=== PATIENT | female | born 1990 | race African-American/Black ===

== ENCOUNTER 2016-12-04 04:10 | Emergency (ER) | payer MEDICAID ==
[~2016-12-04] VITALS: Ht 167.6 cm; Wt 59.0 kg
[2016-12-04] MEDS ORDERED: ONDANSETRON HCL 4MG/2ML VIAL IV ONE (06:30)
[2016-12-04] MEDS ORDERED: SODIUM CHLORIDE 0.9% 1,000 ML IV ONE (06:45)
[2016-12-04] MEDS ORDERED: MORPHINE SULFATE 4 MG/ML CPJ (NOT FOR IM USE) IV ONE (07:00)
[2016-12-04] MEDS: FAMOTIDINE 20MG/2ML VIAL IV SCH ×3 (07:07→08:54)
[2016-12-04 07:13] LABS: HEMATOCRIT. 38.2 % (36.0-48.0); MEAN CORPUSCULAR HEMOGLOBIN 28.9 pg (28.0-32.0); MEAN CORPUSCULAR VOLUME 84.6 fL (81.0-99.0); PLATELET 146 x1000/uL (130-400); RED BLOOD CELL COUNT 4.52 mill/uL (4.2-5.4); RED CELL DISTRIBUTION WIDTH 13.3 % (11.6-14.6)
[2016-12-04 07:15] LABS: CLARITY URINE CLEAR (CLEAR); COLOR URINE YELLOW (YELLOW); GLUCOSE URINE NEGATIVE (NEGATIVE); KETONES URINE 1+ (NEGATIVE); LEUKOCYTE ESTERASE URINE 2+ (NEGATIVE); NITRITE URINE NEGATIVE (NEGATIVE); OCCULT BLOOD URINE NEGATIVE (NEGATIVE); PH URINE 6.5 (4.5-8.0); PROTEIN URINE TRACE (NEGATIVE); SPECIFIC GRAVITY URINE 1.032 (1.005-1.030)
[2016-12-04 07:18] LABS: CHLORIDE 107 mEq/L (98-107)
[2016-12-04 07:23] LABS: CARBON DIOXIDE 25 mEq/L (21-32)
[2016-12-04 07:52] LABS: PLATELET ESTIMATE NORMAL
[2016-12-04] MEDS ORDERED: METOCLOPRAMIDE HCL 10MG/2ML VIAL IV ONE (08:30)
[2016-12-04] MEDS ORDERED: VISCOUS LIDOCAINE 2% 15 ML UDC MM PRN (08:30)
[2016-12-04] MEDS ORDERED: MAGNESIUM/ALUMINUM HYDROXIDE/SIMETHICONE 30ML UDC PO ONE (08:30)
[2016-12-04] MEDS ORDERED: MORPHINE SULFATE 2 MG/ML CPJ (NOT FOR IM USE) IV ONE (08:30)
[2016-12-04 09:43] VITALS: BP 99/58
== END 2016-12-04 10:25 | disposition home or self-care (01) ==
LOC: ER 04:16
DX: R19.7 Diarrhea, unspecified (principal); K52.9 Noninfective gastroenteritis and colitis, unspecified; N39.0 Urinary tract infection, site not specified; J45.909 Unspecified asthma, uncomplicated; E11.9 Type 2 diabetes mellitus without complications
CPT/HCPCS: 36415; 76705; 80053; 81001; 81025; 85007; 85027; 87086; 96361; 96374; 96375; 96376; 99285; J2270; J2405; J2765; J3490; J7030; Z7610

== ENCOUNTER 2017-04-02 10:34 | Emergency (ER) | payer MEDICAID ==
[~2017-04-02] VITALS: Ht 157.5 cm; Wt 59.0 kg
[2017-04-02] MEDS ORDERED: METF500T4 PO (10:40)
[2017-04-02] MEDS ORDERED: ONDANSETRON HCL 4MG/2ML VIAL IV STA (10:57)
[2017-04-02] MEDS ORDERED: SODIUM CHLORIDE 0.9% 1,000 ML IV ONE ×2 (10:57→12:45)
[2017-04-02 11:25] LABS: BASOPHILS % 1.2 % (0.0-2.0); EOSINOPHILS % 4.6 % (0.0-5.0); HEMATOCRIT. 42.6 % (36.0-48.0); HEMOGLOBIN. 14.5 g/dL (12.0-16.0); LYMPHOCYTES % 30.7 % (20.0-50.0); MEAN CORPUSCULAR HEMOGLOBIN 28.4 pg (28.0-32.0); MEAN CORPUSCULAR VOLUME 82.9 fL (81.0-99.0); MEAN PLATELET VOLUME 10.6 fl (7.4-10.4); MONOCYTES % 5.4 % (2.0-8.0); NEUTROPHILS % 58.1 % (40.0-76.0); PLATELET 188 x1000/uL (130-400); RED BLOOD CELL COUNT 5.13 mill/uL (4.2-5.4); RED CELL DISTRIBUTION WIDTH 13.5 % (11.6-14.6)
[2017-04-02 11:33] LABS: PROTHROMBIN TIME 10.7 sec (9.4-11.6)
[2017-04-02 11:35] LABS: CHLORIDE 99 mEq/L (98-107)
[2017-04-02 11:37] LABS: HCG SCREEN NEGATIVE
[2017-04-02 11:39] LABS: CARBON DIOXIDE 24 mEq/L (21-32)
[2017-04-02 11:40] LABS: BETA HYDROXYBUTYRATE 0.9 mMol/L (0.0-0.3)
[2017-04-02 12:12] LABS: CLARITY URINE CLOUDY (CLEAR); COLOR URINE YELLOW (YELLOW); GLUCOSE URINE 3+ (NEGATIVE); KETONES URINE 3+ (NEGATIVE); LEUKOCYTE ESTERASE URINE 1+ (NEGATIVE); NITRITE URINE POSITIVE (NEGATIVE); OCCULT BLOOD URINE NEGATIVE (NEGATIVE); PH URINE 5.5 (4.5-8.0); PROTEIN URINE NEGATIVE (NEGATIVE); SPECIFIC GRAVITY URINE 1.042 (1.005-1.030); UROBILINOGEN URINE 0.2 E.U./dL (0.2-1.0)
[2017-04-02] MEDS ORDERED: CEFTRIAXONE 1 G PREMIX 50 ML IV ONE (12:45)
[2017-04-02 13:56] VITALS: BP 110/59
== END 2017-04-02 13:59 | disposition home or self-care (01) ==
LOC: ER 10:34
DX: E11.65 Type 2 diabetes mellitus with hyperglycemia (principal); N30.00 Acute cystitis without hematuria; Z79.84 Long term (current) use of oral hypoglycemic drugs; J45.909 Unspecified asthma, uncomplicated
CPT/HCPCS: 36415; 80053; 81001; 82010; 82962; 83690; 84703; 85025; 85610; 93005; 96361; 96365; 96375; 99285; J0696; J2405; Z7610; J7030

== ENCOUNTER 2019-04-21 08:20 | Inpatient (IN) | payer MEDICAID ==
[2019-04-21] VITALS (18 sets, daily range): BP systolic 88–113; BP diastolic 49–77
[~2019-04-21] VITALS: Ht 160 cm; Wt 49.9 kg
[~2019-04-21 08:20] MED LIST: METF-414 PO
[2019-04-21] MEDS ORDERED: MORPHINE SULFATE 4 MG/ML CPJ (NOT FOR IM USE) IV STA (08:38)
[2019-04-21] MEDS ORDERED: SODIUM CHLORIDE 0.9% 1,000 ML IV ONE (08:38)
[2019-04-21 09:14] LABS: BASOPHILS % 0.7 % (0.0-2.0); EOSINOPHILS % 1.5 % (0.0-5.0); HEMATOCRIT. 51.5 % (36.0-48.0); HEMOGLOBIN. 16.7 g/dL (12.0-16.0); MEAN CORPUSCULAR HEMOGLOBIN 29.2 pg (28.0-32.0); MEAN CORPUSCULAR VOLUME 90.1 fL (81.0-99.0); MEAN PLATELET VOLUME 11.2 fl (7.4-10.4); MONOCYTES % 4.4 % (2.0-8.0); NEUTROPHILS % 77.4 % (40.0-76.0); PLATELET 258 x1000/uL (130-400); RED BLOOD CELL COUNT 5.72 mill/uL (4.2-5.4); RED CELL DISTRIBUTION WIDTH 15.3 % (11.6-14.6)
[2019-04-21 09:20] LABS: CHLORIDE 98 mEq/L (98-107)
[2019-04-21 09:25] LABS: CLARITY URINE CLEAR (CLEAR); COLOR URINE YELLOW (YELLOW); KETONES URINE 4+ (NEGATIVE); LEUKOCYTE ESTERASE URINE TRACE (NEGATIVE); NITRITE URINE NEGATIVE (NEGATIVE); OCCULT BLOOD URINE 1+ (NEGATIVE); PROTEIN URINE 2+ (NEGATIVE); UROBILINOGEN URINE 0.2 E.U./dL (0.2-1.0)
[2019-04-21 09:27] LABS: BETA HYDROXYBUTYRATE 8.6 mMol/L (0.0-0.3)
[2019-04-21 09:33] LABS: BG BASE EXCESS -19.5 mmol/L (-2.0-2.0); BG CARBOXYHEMOGLOBIN 0.8 % (0.5-1.5); BG DEOXYHEMOGLOBIN 2.2 % (0.0-5.0); BG FRACTION INSPIRED OXYGEN 21; BG HCO3 ACT 7.2 mmol/L (22.0-26.0); BG METHEMOGLOBIN 0.4 % (0.0-1.5); BG OXYGEN SATURATION 97.8 % (92.0-98.5); BG OXYHEMOGLOBIN 96.6 % (94.0-97.0); BG PCO2 20.9 mmHg (35.0-45.0); BG PH 7.154 (7.350-7.450); BG SAMPLE SITE RIGHT BRACHIAL; BG TOTAL HEMOGLOBIN 15.9 g/dL (12.0-18.0); BG VENT MODE ROOM AIR
[2019-04-21] MEDS ORDERED: INSULIN REGULAR (DRIP) 100 UNITS in SODIUM CHLORIDE 0.9% 99 ML IV SCH (09:45)
[2019-04-21] MEDS ORDERED: SODIUM CHLORIDE 0.9% 1,000 ML IV SCH (09:56)
[2019-04-21] MEDS ORDERED: IPRATROPIUM/ALBUTEROL 0.5-3(2.5)MG/3ML NEB HHN PRN (10:00)
[2019-04-21] MEDS ORDERED: ENOXAPARIN 40MG/0.4ML SYR SUBCUT SCH ×2 (10:00→10:45)
[2019-04-21] MEDS ORDERED: MORPHINE SULFATE 4 MG/ML CPJ (NOT FOR IM USE) IV ONE (10:00)
[2019-04-21] MEDS ORDERED: MAGNESIUM/ALUMINUM HYDROXIDE/SIMETHICONE 30ML UDC PO PRN (10:00)
[2019-04-21] MEDS ORDERED: CLONIDINE 0.1MG TABLET PO PRN (10:00)
[2019-04-21] MEDS ORDERED: DIPHENHYDRAMINE 50MG/ML VIAL IV PRN (10:00)
[2019-04-21] MEDS ORDERED: CEFTRIAXONE 1 G PREMIX 50 ML IV SCH (10:00)
[2019-04-21] MEDS ORDERED: ACETAMINOPHEN 325MG TABLET PO PRN (10:00)
[2019-04-21 11:57] LABS: CHLORIDE 108 mEq/L (98-107)
[2019-04-21 12:02] LABS: PHOSPHORUS 2.7 mg/dL (2.5-4.9)
[2019-04-21] MEDS ORDERED: INSULIN REGULAR (DRIP) 100 UNITS in SODIUM CHLORIDE 0.9% 100 ML IV ONE (12:45)
[2019-04-21] MEDS ORDERED: POTASSIUM CHLORIDE INJ 20 MEQ in DEXT 5%/0.9% NACL 1,000 ML IV SCH (15:00)
[2019-04-21] MEDS ORDERED: INSULIN REGULAR (DRIP) 100 UNITS in SODIUM CHLORIDE 0.9% 99 ML IV PRN (15:00)
[2019-04-21 15:28] LABS: CHLORIDE 111 mEq/L (98-107)
[2019-04-21] MEDS ORDERED: EPINEPHRINE 1 MG in SODIUM CHLORIDE 0.9% 249 ML IV PRN (18:00)
[2019-04-21] MEDS: DEXT IV SCH (20:05)
[2019-04-21] MEDS: KCL IV SCH (20:05)
[2019-04-21] MEDS: NACL IV SCH (20:05)
[2019-04-21 20:06] LABS: CHLORIDE 117 mEq/L (98-107)
[2019-04-21] MEDS ORDERED: DEXTROSE 50% WATER 50ML SYRINGE IV PRN ×2 (20:30)
[2019-04-21] MEDS: BLOOD SUGAR DIAGNOSTIC STRIP TEST SCH ×3 (21:24→23:12)
[2019-04-21] MEDS: ONDANSETRON HCL 4MG/2ML INJ IV PRN (21:24)
[2019-04-21] MEDS ORDERED: INSULIN REGULAR (DRIP) 100 UNITS in SODIUM CHLORIDE 0.9% 100 ML IV SCH (22:00)
[2019-04-22] VITALS (21 sets, daily range): BP systolic 80–103; BP diastolic 41–65
[2019-04-22] MEDS: BLOOD SUGAR DIAGNOSTIC STRIP TEST SCH ×9 (00:29→11:41)
[2019-04-22] MEDS: NACL IV SCH ×3 (00:36→09:26)
[2019-04-22] MEDS: KCL IV SCH ×3 (00:36→09:26)
[2019-04-22] MEDS: DEXT IV SCH ×3 (00:36→09:26)
[2019-04-22] MEDS: ONDANSETRON HCL 4MG/2ML INJ IV PRN (05:09)
[2019-04-22] MEDS ORDERED: FLUCONAZOLE 100MG TABLET PO SCH (09:00)
[2019-04-22] MEDS ORDERED: ENOXAPARIN 40MG/0.4ML SYR SUBCUT SCH (09:00)
[2019-04-22 09:11] LABS: CHLORIDE 116 mEq/L (98-107)
[2019-04-22] MEDS ORDERED: CEFTRIAXONE 1 G PREMIX 50 ML IV SCH (10:00)
== END 2019-04-22 14:06 | disposition left against medical advice (07) | DRG 420 ==
LOC: ER 08:20 → MICUNO 09:49 → EDBEDREQ 09:53 → EDBEDREQTM 09:53 → ENRESERV 12:17
PROVIDERS: ADMIT Internal Medicine; ATTEND Internal Medicine
DX: E11.10 Type 2 diabetes mellitus with ketoacidosis without coma (principal); E87.1 Hypo-osmolality and hyponatremia; E86.0 Dehydration; J45.909 Unspecified asthma, uncomplicated; K08.89 Other specified disorders of teeth and supporting structures; N39.0 Urinary tract infection, site not specified; Z79.84 Long term (current) use of oral hypoglycemic drugs
CPT/HCPCS: 36415; 36600; 71045; 80048; 80061; 81003; 82010; 82375; 82805; 82962; 83735; 84100; 84443; 93970; 96361; 96365; 96367; 96372; 96375; 96376; 99291; J0696; J1200; J1650; J1815; J2270; J2405; J3480; J7030; J7042; J7050

== ENCOUNTER 2021-03-03 23:25 | Emergency (ER) | payer MEDICAID ==
[~2021-03-03] VITALS: Ht 170.2 cm; Wt 61.0 kg
[2021-03-03] MEDS ORDERED: SODIUM CHLORIDE 0.9% 1,000 ML IV ONE (23:45)
[2021-03-04 00:18] LABS: BASOPHILS % 1.1 % (0.0-2.0); EOSINOPHILS % 2.7 % (0.0-5.0); HEMATOCRIT. 31.6 % (36.0-48.0); HEMOGLOBIN. 10.1 g/dL (12.0-16.0); LYMPHOCYTES % 33.3 % (20.0-50.0); MEAN CORPUSCULAR HEMOGLOBIN 23.7 pg (28.0-32.0); MEAN CORPUSCULAR VOLUME 74.3 fL (81.0-99.0); MEAN PLATELET VOLUME 9.8 fl (7.4-10.4); MONOCYTES % 7.7 % (2.0-8.0); NEUTROPHILS % 55.2 % (40.0-76.0); PLATELET 223 x1000/uL (130-400); RED BLOOD CELL COUNT 4.26 mill/uL (4.2-5.4); RED CELL DISTRIBUTION WIDTH 18.3 % (11.6-14.6)
[2021-03-04] MEDS ORDERED: KETOROLAC 30MG/ML VIAL IV ONE (00:30)
[2021-03-04 00:33] LABS: CHLORIDE 101 mEq/L (98-107)
[2021-03-04 00:38] LABS: ETHANOL BLOOD < 10 mg/dL
[2021-03-04 00:40] LABS: BETA HYDROXYBUTYRATE 0.2 mMol/L (0.0-0.3)
[2021-03-04 00:44] LABS: CLARITY URINE CLEAR (CLEAR); COLOR URINE YELLOW (YELLOW); KETONES URINE NEGATIVE (NEGATIVE); LEUKOCYTE ESTERASE URINE NEGATIVE (NEGATIVE); NITRITE URINE NEGATIVE (NEGATIVE); OCCULT BLOOD URINE NEGATIVE (NEGATIVE); PH URINE 6.5 (4.5-8.0); PROTEIN URINE NEGATIVE (NEGATIVE); SPECIFIC GRAVITY URINE 1.036 (1.005-1.030)
[2021-03-04] MEDS ORDERED: SODIUM CHLORIDE 0.9% 1000ML BAG (SEPSIS BOLUS) IV NR (01:00)
[2021-03-04] MEDS ORDERED: INSULIN LISPRO 100 UNITS/ML SUBCUT NR (01:00)
[2021-03-04 01:15] LABS: *AMPHETAMINES SCREEN URINE NEGATIVE (NEGATIVE); *BARBITURATES SCREEN URINE NEGATIVE (NEGATIVE); *COCAINE SCREEN URINE NEGATIVE (NEGATIVE); METHADONE URINE SCREEN NEGATIVE (NEGATIVE); OPIATES URINE SCREEN NEGATIVE (NEGATIVE)
[2021-03-04 01:16] LABS: PHENCYCLIDINE URINE SCREEN NEGATIVE (NEGATIVE)
[2021-03-04 01:17] LABS: *BENZODIAZEPINES SCREEN URINE NEGATIVE (NEGATIVE)
[2021-03-04 01:25] LABS: CANNABINOID URINE SCREEN PRESUMTIVE POSITIVE (NEGATIVE)
[2021-03-04 02:00] VITALS: BP 121/78
== END 2021-03-04 03:00 | disposition home or self-care (01) ==
LOC: ER 23:25
DX: F12.10 Cannabis abuse, uncomplicated (principal); E11.65 Type 2 diabetes mellitus with hyperglycemia; J45.909 Unspecified asthma, uncomplicated
CPT/HCPCS: 36415; 71045; 80053; 80305; 80320; 81003; 81025; 82010; 82962; 83036; 83605; 83690; 85025; 93005; 96361; 96372; 96374; 99291; J1815; J1885; J7030; G0480

== ENCOUNTER 2022-10-04 08:34 | Emergency (ER) | payer MEDICAID ==
[~2022-10-04] VITALS: Ht 162.6 cm; Wt 65.0 kg
[2022-10-04] MEDS ORDERED: ACETAMINOPHEN 325MG TABLET PO ONE (08:45)
[2022-10-04] MEDS ORDERED: ONDANSETRON HCL 4MG/2ML INJ IV ONE ×2 (08:45→11:00)
[2022-10-04] MEDS ORDERED: SODIUM CHLORIDE 0.9% 1,000 ML IV ONE (08:45)
[2022-10-04 08:58] LABS: BASOPHILS % 0.5 % (0.0-2.0); EOSINOPHILS % 1.5 % (0.0-5.0); HEMATOCRIT. 36.5 % (36.0-48.0); HEMOGLOBIN. 12.3 g/dL (12.0-16.0); LYMPHOCYTES % 17.4 % (20.0-50.0); MEAN CORPUSCULAR HEMOGLOBIN 27.4 pg (28.0-32.0); MEAN CORPUSCULAR VOLUME 81.3 fL (81.0-99.0); MEAN PLATELET VOLUME 9.7 fl (7.4-10.4); MONOCYTES % 7.1 % (2.0-8.0); NEUTROPHILS % 73.5 % (40.0-76.0); PLATELET 273 x1000/uL (130-400); RED BLOOD CELL COUNT 4.49 mill/uL (4.2-5.4); RED CELL DISTRIBUTION WIDTH 15.7 % (11.6-14.6)
[2022-10-04 09:05] LABS: CHLORIDE 104 mEq/L (98-107)
[2022-10-04 09:13] LABS: BETA HYDROXYBUTYRATE 0.2 mMol/L (0.0-0.3)
[2022-10-04 09:37] LABS: HCG SCREEN NEGATIVE
[2022-10-04] MEDS ORDERED: KETOROLAC 30MG/ML VIAL IV ONE (11:00)
[2022-10-04] MEDS ORDERED: METOCLOPRAMIDE HCL 10MG/2ML VIAL IV ONE (12:45)
[2022-10-04 14:50] VITALS: BP 105/85
== END 2022-10-04 15:20 | disposition short-term general hospital (02) ==
LOC: ER 08:34 → CANBEDREQ 12:19 → ER 15:20
DX: R11.2 Nausea with vomiting, unspecified (principal); E11.9 Type 2 diabetes mellitus without complications; J45.909 Unspecified asthma, uncomplicated; Z20.822 Contact with and (suspected) exposure to COVID-19; Z88.6 Allergy status to analgesic agent
CPT/HCPCS: 36415; 71045; 80053; 82010; 82962; 84703; 85025; 87426; 96361; 96374; 96375; 96376; 99285; C9803; J1885; J2405; J2765; J7030; Z7610

== ENCOUNTER 2023-02-22 12:03 | Emergency (ER) | payer MEDICARE ==
[~2023-02-22] VITALS: Ht 167.6 cm; Wt 59.0 kg
[2023-02-22 12:06] VITALS: O2SAT 98
[2023-02-22] MEDS ORDERED: ONDANSETRON 4MG ODT PO STA (12:12)
[2023-02-22] MEDS ORDERED: ACETAMINOPHEN 325MG TABLET PO STA (12:20)
[2023-02-22 12:57] LABS: BASOPHILS % 0.4 % (0.0-2.0); DIFFERENTIAL COMMENT 0; EOSINOPHILS % 0.2 % (0.0-5.0); HEMATOCRIT. 34.1 % (36.0-48.0); LYMPHOCYTES % 12.1 % (20.0-50.0); MEAN CORPUSCULAR HEMOGLOBIN 25.5 pg (28.0-32.0); MEAN CORPUSCULAR HGB CONC 32.1 g/dL (31.0-37.0); MEAN CORPUSCULAR VOLUME 79.3 fL (81.0-99.0); MEAN PLATELET VOLUME 9.1 fl (7.4-10.4); MONOCYTES % 5.6 % (2.0-8.0); NEUTROPHILS % 81.7 % (40.0-76.0); PLATELET 354 x1000/uL (130-400); RED CELL DISTRIBUTION WIDTH 18.7 % (11.6-14.6); WHITE BLOOD COUNT 6.3 x1000/uL (4.5-11.0)
[2023-02-22 13:10] LABS: HCG SCREEN NEGATIVE
[2023-02-22 13:13] LABS: CHLORIDE 104 mEq/L (98-107); INDEX HEMOLYSI 1 (1-3); INDEX ICTERIC 1 (1-4); INDEX LIPEMIC 1 (1-3); POTASSIUM 3.4 mEq/L (3.5-5.1); SODIUM 134 mEq/L (136-145)
[2023-02-22 13:33] LABS: ALANINE AMINOTRANSFERASE 16 IU/L (13-61); ALBUMIN 3.6 g/dL (3.4-5.0); ASPARTATE AMINOTRANSFERASE 7 IU/L (15-37); BETA HYDROXYBUTYRATE 5.3 mMol/L (0.0-0.3); BILIRUBIN TOTAL 0.6 mg/dL (0.1-1.0); CALCIUM 8.6 mg/dL (8.5-10.1); CARBON DIOXIDE 21 mEq/L (21-32); CREATININE 0.6 mg/dL (0.6-1.3); GLUCOSE 312 mg/dL (70-105); PROTEIN TOTAL 7.2 g/dL (6.0-8.3); UREA NITROGEN BLOOD 10 mg/dL (7-21)
[2023-02-22] MEDS ORDERED: SODIUM CHLORIDE 0.9% 1,000 ML IV ONE (14:15)
[2023-02-22] MEDS ORDERED: METOCLOPRAMIDE HCL 10MG/2ML VIAL IV ONE (14:30)
[2023-02-22] MEDS ORDERED: ONDA8TAB13 MT ×2 (18:33)
[2023-02-22] MEDS ORDERED: METOCLOPRAMIDE HCL 10MG/2ML VIAL IV NR (18:50)
[2023-02-22] MEDS ORDERED: MAGNESIUM/ALUMINUM HYDROXIDE/SIMETHICONE 30ML UDC PO ONE (19:15)
[2023-02-22] MEDS ORDERED: OMEP40CA20 MT (19:32)
[2023-02-22] MEDS ORDERED: ONDA4TAB50 MT (19:42)
[2023-02-22] MEDS ORDERED: ACETAMINOPHEN 325MG TABLET PO NR (21:32)
[2023-02-22] MEDS ORDERED: MAGNESIUM/ALUMINUM HYDROXIDE/SIMETHICONE 30ML UDC PO NR (21:32)
[2023-02-22] MEDS ORDERED: ONDANSETRON 4MG ODT PO NR (21:32)
[2023-02-22 23:11] LABS: CLARITY URINE CLEAR (CLEAR); COLOR URINE YELLOW (YELLOW); GLUCOSE URINE 3+ (NEGATIVE); KETONES URINE 4+ (NEGATIVE); LEUKOCYTE ESTERASE URINE NEGATIVE (NEGATIVE); NITRITE URINE NEGATIVE (NEGATIVE); OCCULT BLOOD URINE NEGATIVE (NEGATIVE); PH URINE 5.5 (4.5-8.0); PROTEIN URINE NEGATIVE (NEGATIVE); SPECIFIC GRAVITY URINE 1.024 (1.005-1.030); UROBILINOGEN URINE 0.2 E.U./dL (0.2-1.0)
[2023-02-22 23:20] LABS: WBC URINE 0-2 /hpf (0-2)
[2023-02-22 23:21] LABS: BACTERIA URINE NONE SEEN; RBC URINE NONE SEEN /hpf (0-2); SQUAMOUS EPITHELIAL CELL URINE 1+ /lpf (RARE/1+)
[2023-02-22 23:26] LABS: *AMPHETAMINES SCREEN URINE NEGATIVE (NEGATIVE); *BARBITURATES SCREEN URINE NEGATIVE (NEGATIVE); *BENZODIAZEPINES SCREEN URINE NEGATIVE (NEGATIVE); *COCAINE SCREEN URINE NEGATIVE (NEGATIVE); ECSTASY MDMA SCREEN URINE NEGATIVE (NEGATIVE); METHADONE URINE SCREEN NEGATIVE (NEGATIVE); OPIATES URINE SCREEN NEGATIVE (NEGATIVE); PHENCYCLIDINE URINE SCREEN NEGATIVE (NEGATIVE)
[2023-02-22 23:57] LABS: CANNABINOID URINE SCREEN PRESUMTIVE POSITIVE (NEGATIVE)
[2023-02-23] MEDS ORDERED: DIPHENHYDRAMINE 25MG CAPSULE PO NR (01:00)
[2023-02-23 01:20] VITALS: BP 119/79; PULSE 89; RESP 19; TEMP 98.7
== END 2023-02-23 01:21 | disposition home or self-care (01) ==
LOC: ER 12:03
DX: K31.84 Gastroparesis (principal); E11.65 Type 2 diabetes mellitus with hyperglycemia; R11.2 Nausea with vomiting, unspecified; J45.909 Unspecified asthma, uncomplicated; Z88.8 Allergy status to other drugs, medicaments and biological substances
CPT/HCPCS: 80053; 80305; 81003; 82010; 82962; 84703; 83605; 83690; 85025; 36415; 74176; 96360; 99285; Q0162; J2765; J7030; Z7610; Q0163

== ENCOUNTER 2024-10-22 19:52 | Inpatient (IN) | payer BC, MEDICAID ==
[~2024-10-22] VITALS: Ht 157.5 cm; Wt 61.2 kg
[~2024-10-22 19:52] MED LIST changes: +OMEP40CA20 MT; +ONDA4TAB50 MT
[2024-10-22 19:54] VITALS: O2SAT 100
[2024-10-22 20:35] LABS: BG BASE EXCESS -6.5 mmol/L (-2.0-3.0); BG DEOXYHEMOGLOBIN 2.4 % (0.0-5.0); BG FRACTION INSPIRED OXYGEN 21; BG HCO3 ACT 17.1 mmol/L (21.0-28.0); BG METHEMOGLOBIN 0.3 % (0.5-1.5); BG OXYGEN SATURATION 97.5 % (94.0-98.0); BG OXYHEMOGLOBIN 94.3 % (94.0-98.0); BG PCO2 27.6 mmHg (32.0-45.0); BG PH 7.411 (7.350-7.450); BG PO2 91.8 mmHg (83.0-108.0); BG SAMPLE SITE RIGHT RADIAL; BG TOTAL HEMOGLOBIN 9.3 g/dL (12.0-16.0); BG VENT MODE ROOM AIR
[2024-10-22] MEDS: SODIUM CHLORIDE 0.9% 1,000 ML IV ONE ×3 (20:51→21:47)
[2024-10-22] MEDS: METOCLOPRAMIDE HCL 10MG/2ML VIAL IV STA (20:52)
[2024-10-22] MEDS: FAMOTIDINE 20MG/2ML VIAL IV STA (20:52)
[2024-10-22] MEDS: MORPHINE SULFATE 2 MG/ML INJ (NOT FOR IM USE) IV ONE (20:53)
[2024-10-22 20:59] LABS: BASOPHILS % 1.4 % (0.0-2.0); DIFFERENTIAL COMMENT 0; EOSINOPHILS % 1.8 % (0.0-5.0); HEMATOCRIT. 27.3 % (36.0-48.0); HEMOGLOBIN. 8.3 g/dL (12.0-16.0); LYMPHOCYTES % 23.6 % (20.0-50.0); MEAN CORPUSCULAR HEMOGLOBIN 21.5 pg (28.0-32.0); MEAN CORPUSCULAR HGB CONC 30.4 g/dL (31.0-37.0); MEAN CORPUSCULAR VOLUME 70.7 fL (81.0-99.0); MEAN PLATELET VOLUME 9.4 fl (7.4-10.4); MONOCYTES % 7.9 % (2.0-8.0); NEUTROPHILS % 65.3 % (40.0-76.0); PLATELET 294 x1000/uL (130-400); RED BLOOD CELL COUNT 3.86 mill/uL (4.2-5.4); RED CELL DISTRIBUTION WIDTH 20.9 % (11.6-14.6); WHITE BLOOD COUNT 6.1 x1000/uL (4.5-11.0)
[2024-10-22 21:09] LABS: PROTHROMBIN TIME 10.3 sec (9.6-11.0)
[2024-10-22 21:10] LABS: CARBON DIOXIDE 19 mEq/L (21-32); CHLORIDE 101 mEq/L (98-107); POTASSIUM 4.5 mEq/L (3.5-5.1); SODIUM 133 mEq/L (136-145)
[2024-10-22 21:11] LABS: CALCIUM 8.9 mg/dL (8.7-10.4)
[2024-10-22 21:16] LABS: ETHANOL BLOOD < 10 mg/dL (<10); HCG SCREEN NEGATIVE; UREA NITROGEN BLOOD 18 mg/dL (9-23)
[2024-10-22 21:18] LABS: ALANINE AMINOTRANSFERASE 15 IU/L (10-49); ALBUMIN 3.8 g/dL (3.2-4.8); ASPARTATE AMINOTRANSFERASE 9 IU/L (<34); BILIRUBIN DIRECT < 0.1 mg/dL (<=3.0); BILIRUBIN TOTAL 0.3 mg/dL (0.1-1.0); PROTEIN TOTAL 6.5 g/dL (6.0-8.3)
[2024-10-22 21:34] LABS: CLARITY URINE CLEAR (CLEAR); COLOR URINE YELLOW (YELLOW); GLUCOSE URINE 3+ (NEGATIVE); KETONES URINE 2+ (NEGATIVE); LEUKOCYTE ESTERASE URINE NEGATIVE (NEGATIVE); NITRITE URINE NEGATIVE (NEGATIVE); OCCULT BLOOD URINE NEGATIVE (NEGATIVE); PH URINE 5.5 (4.5-8.0); PROTEIN URINE NEGATIVE (NEGATIVE); SPECIFIC GRAVITY URINE 1.032 (1.005-1.030); UROBILINOGEN URINE 0.2 E.U./dL (0.2-1.0)
[2024-10-22] MEDS: INSULIN REGULAR (HUMULIN R) 1000UNITS/10ML VIAL SUBCUT NR (21:34)
[2024-10-22 21:39] LABS: BETA HYDROXYBUTYRATE 0.6 mMol/L (0.0-0.3); CREATININE 1.4 mg/dL (0.6-1.0); GLUCOSE 546 mg/dL (70-105); TROPONIN I HIGH SENSITIVITY < 4 ng/L (3.0-34)
[2024-10-22 21:44] LABS: BACTERIA URINE 1+; RBC URINE 0-2 /hpf (0-2); SQUAMOUS EPITHELIAL CELL URINE FEW /lpf (RARE/1+)
[2024-10-22 21:45] LABS: WBC URINE 0-2 /hpf (0-2)
[2024-10-22 22:06] LABS: LACTIC ACID 4.8 mmol/L (0.4-2.0)
[2024-10-22] MEDS: SODIUM CHLORIDE 0.9% (SEPSIS BOLUS) IV NR (22:15)
[2024-10-22] MEDS: CEFTRIAXONE 1GM/50ML 50 ML IV NR (22:37)
[2024-10-22] MEDS: AZITHROMYCIN 500MG/250ML 250 ML IV NR (23:07)
[2024-10-22 23:46] VITALS: BP 155/70; PULSE 80; RESP 18; TEMP 36.6
[2024-10-23] VITALS (7 sets, daily range): BP systolic 104–145; BP diastolic 62–97; PULSE 63–121; RESP 16–18; TEMP 36.1–36.7; O2SAT 96–100
[2024-10-23] MEDS ORDERED: DEXTROSE 50% WATER 50ML SYRINGE IV PRN (02:30)
[2024-10-23] MEDS: ONDANSETRON HCL 4MG/2ML INJ IV PRN ×2 (04:38→21:14)
[2024-10-23] MEDS: BLOOD SUGAR DIAGNOSTIC STRIP TEST SCH (06:04)
[2024-10-23] MEDS: INSULIN LISPRO 100 UNITS/ML SUBCUT SCH ×2 (07:38→17:52)
[2024-10-23] MEDS ORDERED: IPRATROPIUM/ALBUTEROL 0.5-3(2.5)MG/3ML NEB HHN PRN (10:15)
[2024-10-23] MEDS ORDERED: CLONIDINE 0.1MG TABLET PO PRN (10:15)
[2024-10-23] MEDS ORDERED: ACETAMINOPHEN 325MG TABLET PO PRN ×2 (10:15)
[2024-10-23] MEDS ORDERED: NALOXONE HCL 0.4MG/ML VIAL IV PRN (10:30)
[2024-10-23] MEDS: HYDROCODONE/ACETAMINOPHEN 5/325MG TABLET PO PRN (11:05)
[2024-10-23] MEDS: SODIUM CHLORIDE 0.9% 1,000 ML IV SCH (11:06)
[2024-10-23 12:28] LABS: *AMPHETAMINES SCREEN URINE NEGATIVE (NEGATIVE); *BARBITURATES SCREEN URINE NEGATIVE (NEGATIVE); *BENZODIAZEPINES SCREEN URINE NEGATIVE (NEGATIVE)
[2024-10-23 12:29] LABS: *COCAINE SCREEN URINE NEGATIVE (NEGATIVE); METHADONE URINE SCREEN NEGATIVE (NEGATIVE); OPIATES URINE SCREEN NEGATIVE (NEGATIVE)
[2024-10-23 12:30] LABS: CANNABINOID URINE SCREEN PRESUMPTIVE POSITIVE (NEGATIVE); ECSTASY MDMA SCREEN URINE NEGATIVE (NEGATIVE); PHENCYCLIDINE URINE SCREEN NEGATIVE (NEGATIVE)
[2024-10-23] MEDS: INSULIN LISPRO 100 UNITS/ML SUBCUT NR (14:32)
[2024-10-23] MEDS: DILTIAZEM HCL 30MG TABLET PO SCH (14:36)
[2024-10-23] MEDS: METOCLOPRAMIDE HCL 10MG/2ML VIAL IV SCH (14:37)
[2024-10-23] MEDS: DOCUSATE SODIUM 100MG CAPSULE PO PRN (17:59)
[2024-10-23] MEDS: INSULIN GLARGINE 100 UNITS/ML SUBCUT SCH (21:17)
[2024-10-23 22:30] LABS: BASOPHILS % 0.5 % (0.0-2.0); DIFFERENTIAL COMMENT 0; EOSINOPHILS % 1.1 % (0.0-5.0); HEMATOCRIT. 32.6 % (36.0-48.0); HEMOGLOBIN. 9.6 g/dL (12.0-16.0); LYMPHOCYTES % 14.6 % (20.0-50.0); MEAN CORPUSCULAR HEMOGLOBIN 21.1 pg (28.0-32.0); MEAN CORPUSCULAR HGB CONC 29.5 g/dL (31.0-37.0); MEAN CORPUSCULAR VOLUME 71.6 fL (81.0-99.0); MEAN PLATELET VOLUME 9.9 fl (7.4-10.4); MONOCYTES % 5.9 % (2.0-8.0); NEUTROPHILS % 77.9 % (40.0-76.0); PLATELET 403 x1000/uL (130-400); RED BLOOD CELL COUNT 4.55 mill/uL (4.2-5.4); RED CELL DISTRIBUTION WIDTH 21.6 % (11.6-14.6); WHITE BLOOD COUNT 11.7 x1000/uL (4.5-11.0)
[2024-10-23] MEDS: LACTULOSE 20G/30ML UDC PO NR (22:36)
[2024-10-23] MEDS: NA PHOS,M-B/NA PHOS,DI-BA ENEMA 118ML PR NR (22:36)
[2024-10-23] MEDS: MORPHINE SULFATE 2 MG/ML INJ (NOT FOR IM USE) IV PRN (22:36)
[2024-10-24] VITALS (43 sets, daily range): BP systolic 68–151; BP diastolic 33–109; PULSE 84–121; RESP 11–24; TEMP 36.4–36.9; O2SAT 98–100
[2024-10-24 06:48] LABS: HEMATOCRIT. 31.4 % (36.0-48.0); MEAN CORPUSCULAR HEMOGLOBIN 21.3 pg (28.0-32.0); MEAN CORPUSCULAR HGB CONC 28.8 g/dL (31.0-37.0); MEAN CORPUSCULAR VOLUME 74.1 fL (81.0-99.0); MEAN PLATELET VOLUME 9.3 fl (7.4-10.4); PLATELET 370 x1000/uL (130-400); PROTHROMBIN TIME 10.7 sec (9.6-11.0); RED BLOOD CELL COUNT 4.24 mill/uL (4.2-5.4); RED CELL DISTRIBUTION WIDTH 21.2 % (11.6-14.6); WHITE BLOOD COUNT 11.3 x1000/uL (4.5-11.0)
[2024-10-24 06:56] LABS: DIFFERENTIAL COMMENT 1
[2024-10-24 06:57] LABS: CHLORIDE 104 mEq/L (98-107); POTASSIUM 5.3 mEq/L (3.5-5.1); SODIUM 133 mEq/L (136-145)
[2024-10-24 06:58] LABS: CALCIUM 9.2 mg/dL (8.7-10.4)
[2024-10-24 07:03] LABS: CREATININE 1.2 mg/dL (0.6-1.0); IRON 26 ug/dL (50-170); UREA NITROGEN BLOOD 12 mg/dL (9-23)
[2024-10-24 07:04] LABS: ALANINE AMINOTRANSFERASE 18 IU/L (10-49)
[2024-10-24 07:05] LABS: ALBUMIN 4.5 g/dL (3.2-4.8); ASPARTATE AMINOTRANSFERASE 14 IU/L (<34); BILIRUBIN DIRECT 0.1 mg/dL (<=3.0); BILIRUBIN TOTAL 0.4 mg/dL (0.1-1.0); PHOSPHORUS 3.4 mg/dL (2.5-4.9); PROTEIN TOTAL 7.4 g/dL (6.0-8.3); TOTAL IRON BINDING CAPACITY 428 ug/dl (250-425)
[2024-10-24 07:32] LABS: FERRITIN 8 ng/mL (10-291); FOLIC ACID (FOLATE) SERUM > 20.00 ng/mL (>5.38)
[2024-10-24 07:33] LABS: VITAMIN B12 SERUM 525 pg/mL (211-911)
[2024-10-24 07:46] LABS: CARBON DIOXIDE < 10 mEq/L (21-32); GLUCOSE 579 mg/dL (70-105)
[2024-10-24] MEDS: BLOOD SUGAR DIAGNOSTIC STRIP TEST SCH (08:00)
[2024-10-24] MEDS ORDERED: BLOOD SUGAR DIAGNOSTIC STRIP TEST PRN (08:00)
[2024-10-24] MEDS: SODIUM ZIRCONIUM CYCLOSILICATE 10GM/PACKET PO NR (08:00)
[2024-10-24] MEDS: SODIUM CHLORIDE 0.9% 1,000 ML IV SCH (08:00)
[2024-10-24] MEDS: SODIUM BICARBONATE 100 MEQ in SODIUM CHLORIDE 0.45% 900 ML IV SCH (08:00)
[2024-10-24] MEDS ORDERED: DEXTROSE 50% WATER 50ML SYRINGE IV PRN (08:00)
[2024-10-24] MEDS: INSULIN REGULAR (HUMULIN R) 1000UNITS/10ML VIAL IV NR (08:00)
[2024-10-24] MEDS: PANTOPRAZOLE SODIUM 40 MG/VIAL IV SCH (09:20)
[2024-10-24] MEDS: SODIUM PHOSPHATE 15 MMOL in SODIUM CHLORIDE 0.9% 245 ML IV PRN (09:24)
[2024-10-24] MEDS: METOPROLOL TARTRATE 5MG/5ML VIAL IV NR (09:41)
[2024-10-24] MEDS: METOPROLOL TARTRATE 50MG TABLET PO SCH (10:00)
[2024-10-24 10:17] LABS: BETA HYDROXYBUTYRATE 7.5 mMol/L (0.0-0.3)
[2024-10-24 10:40] LABS: TROPONIN I HIGH SENSITIVITY < 4 ng/L (3.0-34)
[2024-10-24 10:45] LABS: BG BASE EXCESS -11.5 mmol/L (-2.0-3.0); BG CARBOXYHEMOGLOBIN 1.7 % (0.5-1.5); BG DEOXYHEMOGLOBIN 1.7 % (0.0-5.0); BG FRACTION INSPIRED OXYGEN 21; BG HCO3 ACT 13.4 mmol/L (21.0-28.0); BG METHEMOGLOBIN 0.3 % (0.5-1.5); BG OXYGEN SATURATION 98.3 % (94.0-98.0); BG OXYHEMOGLOBIN 96.3 % (94.0-98.0); BG PCO2 26.8 mmHg (32.0-45.0); BG PH 7.316 (7.350-7.450); BG PO2 107.2 mmHg (83.0-108.0); BG SAMPLE SITE RIGHT RADIAL; BG TOTAL HEMOGLOBIN 9.1 g/dL (12.0-16.0); BG VENT MODE ROOM AIR
[2024-10-24] MEDS: MORPHINE SULFATE 2 MG/ML INJ (NOT FOR IM USE) IV NR (10:51)
[2024-10-24 10:58] LABS: CHLORIDE 107 mEq/L (98-107); POTASSIUM 3.9 mEq/L (3.5-5.1); SODIUM 135 mEq/L (136-145)
[2024-10-24 10:59] LABS: CARBON DIOXIDE 15 mEq/L (21-32); CHLORIDE 106 mEq/L (98-107); POTASSIUM 3.9 mEq/L (3.5-5.1); SODIUM 136 mEq/L (136-145)
[2024-10-24 11:00] LABS: CALCIUM 8.7 mg/dL (8.7-10.4); CARBON DIOXIDE 15 mEq/L (21-32)
[2024-10-24 11:05] LABS: GLUCOSE 147 mg/dL (70-105); UREA NITROGEN BLOOD 12 mg/dL (9-23)
[2024-10-24 11:06] LABS: PHOSPHORUS 2.9 mg/dL (2.5-4.9)
[2024-10-24 11:07] LABS: BETA HYDROXYBUTYRATE 3.7 mMol/L (0.0-0.3)
[2024-10-24 11:37] LABS: CLARITY URINE CLEAR (CLEAR); COLOR URINE YELLOW (YELLOW); GLUCOSE URINE 3+ (NEGATIVE); KETONES URINE 4+ (NEGATIVE); LEUKOCYTE ESTERASE URINE NEGATIVE (NEGATIVE); NITRITE URINE NEGATIVE (NEGATIVE); OCCULT BLOOD URINE NEGATIVE (NEGATIVE); PROTEIN URINE TRACE (NEGATIVE); SPECIFIC GRAVITY URINE 1.023 (1.005-1.030); UROBILINOGEN URINE 0.2 E.U./dL (0.2-1.0)
[2024-10-24] MEDS ORDERED: INSULIN REGULAR 100U/100ML PMX 100 ML IV SCH (12:00)
[2024-10-24] MEDS: DEXT 5%/0.9% NACL 1,000 ML IV SCH (12:00)
[2024-10-24 12:22] LABS: RBC URINE NONE SEEN /hpf (0-2); SQUAMOUS EPITHELIAL CELL URINE 2+ /lpf (RARE/1+); WBC URINE 0-2 /hpf (0-2)
[2024-10-24 12:23] LABS: BACTERIA URINE NONE SEEN; FINE GRANULAR CASTS URINE 0-5 /lpf; HYALINE CASTS URINE 0-5 /lpf; MUCUS URINE 1+ /lpf (< = 2+)
[2024-10-24 12:46] LABS: PLATELET ESTIMATE NORMAL
[2024-10-24 12:47] LABS: ANISOCYTOSIS 2+; HYPOCHROMASIA 2+; MICROCYTOSIS 2+
[2024-10-24] MEDS: INSULIN REGULAR 100U/100ML PMX 100 ML IV SCH (13:15)
[2024-10-24] MEDS: LORAZEPAM 2MG/ML UD SYRINGE IV NR (14:43)
[2024-10-24] MEDS: PHENYLEPHRINE 50MG/250ML PMX 250 ML IV PRN (15:46)
[2024-10-24] MEDS: SUCRALFATE 1G TABLET PO SCH (17:02)
[2024-10-24] MEDS ORDERED: LORAZEPAM 2MG/ML UD SYRINGE IV PRN (17:15)
[2024-10-24 18:52] LABS: CHLORIDE 112 mEq/L (98-107); POTASSIUM 3.7 mEq/L (3.5-5.1); SODIUM 138 mEq/L (136-145)
[2024-10-24 18:53] LABS: CALCIUM 7.8 mg/dL (8.7-10.4); CARBON DIOXIDE 17 mEq/L (21-32)
[2024-10-24 18:58] LABS: CREATININE 0.9 mg/dL (0.6-1.0); GLUCOSE 200 mg/dL (70-105); UREA NITROGEN BLOOD 8 mg/dL (9-23)
[2024-10-24 19:00] LABS: PHOSPHORUS 2.1 mg/dL (2.5-4.9)
[2024-10-24 19:01] LABS: BETA HYDROXYBUTYRATE 1.1 mMol/L (0.0-0.3)
[2024-10-24] MEDS: KCL 20MEQ/100ML PREMIX 100 ML IV PRN (19:39)
[2024-10-24] MEDS: MAGNESIUM 2 G PREMIX 50 ML IV PRN (19:39)
[2024-10-24 22:07] LABS: BG BASE EXCESS -5.5 mmol/L (-2.0-3.0); BG CARBOXYHEMOGLOBIN 2.8 % (0.5-1.5); BG DEOXYHEMOGLOBIN 2.2 % (0.0-5.0); BG FRACTION INSPIRED OXYGEN 21; BG HCO3 ACT 18.9 mmol/L (21.0-28.0); BG METHEMOGLOBIN 0.3 % (0.5-1.5); BG OXYGEN SATURATION 97.7 % (94.0-98.0); BG OXYHEMOGLOBIN 94.7 % (94.0-98.0); BG PCO2 32.5 mmHg (32.0-45.0); BG PH 7.383 (7.350-7.450); BG PO2 90.7 mmHg (83.0-108.0); BG VENT MODE ROOM AIR
[2024-10-24] MEDS: CALCIUM GLUCONATE 1GM PREMIX 50 ML IV SCH (23:01)
[2024-10-25] VITALS (54 sets, daily range): BP systolic 91–160; BP diastolic 57–107; PULSE 84–112; RESP 12–31; TEMP 36.8–37; O2SAT 97–100
[2024-10-25] MEDS ORDERED: CALCIUM GLUCONATE 1GM PREMIX 50 ML IV ONE
[2024-10-25 00:32] LABS: CARBON DIOXIDE 30 mEq/L (21-32); CHLORIDE 110 mEq/L (98-107); SODIUM 144 mEq/L (136-145)
[2024-10-25 00:33] LABS: CALCIUM 6.6 mg/dL (8.7-10.4)
[2024-10-25 00:38] LABS: CREATININE 0.6 mg/dL (0.6-1.0); GLUCOSE 120 mg/dL (70-105); UREA NITROGEN BLOOD 7 mg/dL (9-23)
[2024-10-25 00:40] LABS: PHOSPHORUS 1.5 mg/dL (2.5-4.9)
[2024-10-25] MEDS: POTASSIUM CHLORIDE 40 MEQ in SODIUM CHLORIDE 0.9% 230 ML IV PRN (01:47)
[2024-10-25 06:14] LABS: CHLORIDE 106 mEq/L (98-107); POTASSIUM 4.1 mEq/L (3.5-5.1); SODIUM 134 mEq/L (136-145)
[2024-10-25 06:16] LABS: CALCIUM 7.7 mg/dL (8.7-10.4); CARBON DIOXIDE 19 mEq/L (21-32)
[2024-10-25 06:21] LABS: CREATININE 0.8 mg/dL (0.6-1.0); GLUCOSE 338 mg/dL (70-105); UREA NITROGEN BLOOD < 5 mg/dL (9-23)
[2024-10-25 06:23] LABS: PHOSPHORUS 1.9 mg/dL (2.5-4.9)
[2024-10-25 11:53] LABS: CHLORIDE 106 mEq/L (98-107); POTASSIUM 3.7 mEq/L (3.5-5.1); SODIUM 139 mEq/L (136-145)
[2024-10-25 11:54] LABS: CALCIUM 8.4 mg/dL (8.7-10.4); CARBON DIOXIDE 24 mEq/L (21-32)
[2024-10-25 11:59] LABS: CREATININE 0.7 mg/dL (0.6-1.0); GLUCOSE 87 mg/dL (70-105); UREA NITROGEN BLOOD < 5 mg/dL (9-23)
[2024-10-25 12:01] LABS: PHOSPHORUS 1.9 mg/dL (2.5-4.9)
[2024-10-25] MEDS ORDERED: DEXTROSE 50% WATER 50ML SYRINGE IV PRN (12:30)
[2024-10-25] MEDS: MAGNESIUM 2 G PREMIX 50 ML IV NR (13:35)
[2024-10-25] MEDS: INSULIN GLARGINE 100 UNITS/ML SUBCUT SCH (13:38)
[2024-10-25] MEDS ORDERED: SODIUM PHOSPHATE 10 MMOL in DEXT 5% WATER 246.6667 ML IV NR (14:00)
[2024-10-25] MEDS ORDERED: POTASSIUM PHOSPHATE 10 MMOL in DEXT 5% WATER 246.6667 ML IV NR (14:00)
[2024-10-25] MEDS ORDERED: BLOOD SUGAR DIAGNOSTIC STRIP TEST SCH ×2 (16:30)
[2024-10-25] MEDS ORDERED: INSULIN LISPRO 100 UNITS/ML SUBCUT SCH (17:00)
== END 2024-10-25 17:25 | disposition left against medical advice (07) | DRG 638 ==
LOC: ER 19:52 → EDBEDREQ 20:32 → 6WST 22:52 → EDBEDREQ 22:55 → ENRESERV 23:05 → MICUSO 10-24 11:53 → 6EST 10-25 14:16
PROVIDERS: ADMIT Internal Medicine; ATTEND Internal Medicine
DX: E11.10 Type 2 diabetes mellitus with ketoacidosis without coma (principal); E87.1 Hypo-osmolality and hyponatremia; N17.9 Acute kidney failure, unspecified; E11.43 Type 2 diabetes mellitus with diabetic autonomic (poly)neuropathy; K31.84 Gastroparesis; Z53.29 Procedure and treatment not carried out because of patient's decision for other reasons; K56.41 Fecal impaction; D64.9 Anemia, unspecified; I10 Essential (primary) hypertension; R00.0 Tachycardia, unspecified; J45.909 Unspecified asthma, uncomplicated; Z90.49 Acquired absence of other specified parts of digestive tract
CPT/HCPCS: 36415; 36600; 71045; 74176; 80048; 80051; 80076; 80305; 80320; 81003; 82010; 82270; 82375; 82607; 82728; 82746; 82805; 82962; 83036; 83540; 83550; 83605; 83735; 83880; 83930; 84100; 84145; 84484; 84703; 85025; 93005; 96361; 96365; 96375; 99291; A4606; J0456; J0610; J0696; J1815; J2060; J2270; J2371; J2405; J2470; J2765; J3475; J3480; J3490; J7030; J7042; J7050; J7060; G0480

== ENCOUNTER 2024-11-15 08:49 | Emergency (ER) | payer BC, MEDICAID ==
[~2024-11-15] VITALS: Ht 162.6 cm; Wt 55.0 kg
[2024-11-15 08:50] VITALS: O2SAT 97
[2024-11-15] MEDS: MORPHINE SULFATE 4 MG/ML INJ (FOR IV/IM USE) IV STA (09:10)
[2024-11-15] MEDS: ONDANSETRON HCL 4MG/2ML INJ IV STA (09:10)
[2024-11-15] MEDS ORDERED: LORAZEPAM 2MG/ML INJ IV ONE (09:15)
[2024-11-15 09:28] LABS: BASOPHILS % 1.5 % (0.0-2.0); HEMATOCRIT. 32.9 % (36.0-48.0); HEMOGLOBIN. 10.1 g/dL (12.0-16.0); LYMPHOCYTES % 21.7 % (20.0-50.0); MEAN CORPUSCULAR HEMOGLOBIN 21.3 pg (28.0-32.0); MEAN CORPUSCULAR HGB CONC 30.6 g/dL (31.0-37.0); MEAN CORPUSCULAR VOLUME 69.5 fL (81.0-99.0); MEAN PLATELET VOLUME 9.7 fl (7.4-10.4); MONOCYTES % 9.1 % (2.0-8.0); NEUTROPHILS % 65.7 % (40.0-76.0); PLATELET 343 x1000/uL (130-400); RED BLOOD CELL COUNT 4.74 mill/uL (4.2-5.4); RED CELL DISTRIBUTION WIDTH 21.5 % (11.6-14.6); WHITE BLOOD COUNT 8.7 x1000/uL (4.5-11.0)
[2024-11-15 09:30] LABS: ADD RBC MORPHOLOGY YES; DIFFERENTIAL COMMENT 1
[2024-11-15 09:35] LABS: CHLORIDE 100 mEq/L (98-107); POTASSIUM 3.4 mEq/L (3.5-5.1); SODIUM 136 mEq/L (136-145)
[2024-11-15 09:36] LABS: CALCIUM 9.7 mg/dL (8.7-10.4); CARBON DIOXIDE 23 mEq/L (21-32)
[2024-11-15 09:39] LABS: INR 0.9; PROTHROMBIN TIME 10.1 sec (9.6-11.0)
[2024-11-15 09:41] LABS: GLUCOSE 202 mg/dL (70-105); UREA NITROGEN BLOOD 14 mg/dL (9-23)
[2024-11-15 09:42] LABS: ETHANOL BLOOD < 10 mg/dL (<10)
[2024-11-15 09:43] LABS: BETA HYDROXYBUTYRATE 0.6 mMol/L (0.0-0.3)
[2024-11-15 09:50] LABS: HCG SCREEN NEGATIVE
[2024-11-15 09:57] LABS: ANISOCYTOSIS 3+; MICROCYTOSIS 3+; PLATELET ESTIMATE NORMAL
[2024-11-15] MEDS: SODIUM CHLORIDE 0.9% 1,000 ML IV ONE ×2 (10:10→12:54)
[2024-11-15] MEDS: LORAZEPAM 2MG/ML UD SYRINGE IV SCH (10:10)
[2024-11-15 14:21] VITALS: BP 91/63; PULSE 96; RESP 11; TEMP 36.9; O2SAT 100
== END 2024-11-15 14:49 | disposition home or self-care (01) ==
LOC: ER 08:49
DX: R07.89 Other chest pain (principal); E11.65 Type 2 diabetes mellitus with hyperglycemia; J45.909 Unspecified asthma, uncomplicated; Z79.899 Other long term (current) drug therapy
CPT/HCPCS: 80048; 82010; 80320; 84703; 83690; 85025; 85610; 36415; 71045; 74176; 93005; 96361; 96374; 96375; 99285; J2060; J2405; J2270; J7030; G0480